=== PATIENT | male | born 1995 | race Caucasian/White ===

== ENCOUNTER 2023-12-28 18:54 | Emergency (ER) | payer MEDICARE, OTHER ==
[~2023-12-28] VITALS: Ht 182.9 cm; Wt 72.7 kg
[2023-12-28 19:07] VITALS: TEMP 98.2
[2023-12-28] MEDS ORDERED: CHLO10TA9 PO (21:53)
[2023-12-28] MEDS ORDERED: METF-1211 PO (21:53)
[2023-12-28] MEDS ORDERED: PANT-31 PO (21:53)
[2023-12-28] MEDS ORDERED: CLON-501 PO (21:53)
[2023-12-28] MEDS ORDERED: DIVA-112 PO (21:53)
[2023-12-28] MEDS ORDERED: GABA-1181 PO (21:53)
[2023-12-28] MEDS ORDERED: OLAN5TAB30 PO (21:53)
[2023-12-28] MEDS ORDERED: BENZ-247 PO (21:53)
[2023-12-28] MEDS ORDERED: MELA10TA20 PO (21:53)
[2023-12-28] MEDS ORDERED: DOCU250C17 PO (21:53)
[2023-12-29] MEDS ORDERED: CEPH-558 PO (02:40)
[2023-12-29] MEDS ORDERED: BACITRACIN ZINC/POLYMYXIN B 14.2 GM OINTMENT TP ONE (03:00)
[2023-12-29] MEDS: CEPHALEXIN MONOHYDRATE 500 MG CAPSULE PO ONE (03:10)
[2023-12-29] MEDS: BACITRACIN 0.9 GM PACKET OINTMENT TP ONE (03:10)
[2023-12-29 04:04] VITALS: BP 134/74; PULSE 93; RESP 18; O2SAT 98
== END 2023-12-29 04:12 | disposition home or self-care (01) ==
LOC: EMS 18:54
DX: L03.116 Cellulitis of left lower limb (principal); F20.9 Schizophrenia, unspecified; Z79.84 Long term (current) use of oral hypoglycemic drugs; Z79.899 Other long term (current) drug therapy
CPT/HCPCS: 99283